=== PATIENT | male | born 1975 | race African-American/Black ===

== ENCOUNTER → 2017-02-11 | Outpatient (CLI) | payer OTHER ==
--- NOTE | 2017-02-11 14:43 | CT ---
EXAMINATION TYPE: CT abdomen pelvis w con DATE OF EXAM: 02/11/2017 COMPARISON: Prior CT abdomen and pelvis study December 26, 2008 HISTORY: Generalized abdominal pain per order. Pain in stomach for almost [address] DLP: 1451 mGycm, Automated Exposure Control for Dose Reduction was Utilized. CONTRAST: CT scan of the abdomen and pelvis is performed with oral and with IV Contrast, patient injected with 100 ml mL of Omnipaque 300. FINDINGS: LUNG BASES: No significant abnormality is appreciated. LIVER/GB: No significant abnormality is appreciated. PANCREAS: No significant abnormality is seen. SPLEEN: No significant abnormality is seen. ADRENALS: No significant abnormality is seen. KIDNEYS: No significant abnormality is seen. BOWEL: The oral contrast reaches level of cecum. Normal-appearing appendix is seen posteriorly in the right lower quadrant. There is no suspicious small or large bowel dilatation. Stomach is poorly dist ended and thus suboptimally evaluated as oral contrast has passed on current study. Similar there is suboptimal evaluation of duodenal sweep and proximal jejunal loops. Some proximal jejunal loops in th e upper to midabdomen show moderate to severe wall thickening, for reference axial image 34 loop of b owel right of midline. Fecal material is seen in nondistended colon. PROSTATE/SEMINAL VESICLES: Prostate gland is heterogeneous in appearance and prominent suspected slig htly enlarged in size bulging on bladder base, underlying BPH is suspected. Clinical correlation advi sed. Some central zone calcifications are seen. LYMPH NODES: No greater than 1cm abdominal or pelvic lymph nodes are appreciated. OSSEOUS STRUCTURES: There is persistent prominent disc space narrowing with spurring and endplate scl erosis at lumbosacral junction. Spine is straightened on sagittal images. Stable sclerotic focus left acetabulum presumed benign bone island. OTHER: No significant additional abnormality is seen. IMPRESSION: 1. Possible proximal enteritis, consider infectious or inflammatory etiologies. 2. Prominent suspected enlarged prostate gland, clinical correlation for BPH is advised.
== END | disposition home or self-care (01) ==
LOC: RADCTMAIN 13:53
PROVIDERS: ATTEND Family Medicine
DX: R10.84 Generalized abdominal pain (principal)
CPT/HCPCS: 74177; Q9967

== ENCOUNTER → 2018-03-24 | Outpatient (CLI) | payer OTHER ==
--- NOTE | 2018-03-24 14:34 | MR ---
EXAMINATION TYPE: MR Prostate wo/w con DATE OF EXAM: 03/24/2018 COMPARISON: CT abdomen and pelvis February 11, 2017 IMAGE QUALITY: Suboptimal but repeat not required. Motion artifact noted. INDICATION: PSA elevated , PSA: 3.8 ng/ml on October 02, 2017 Recent Biopsy and Date: None Pathology Report (If Applicable): N/A TECHNIQUE: Examination was performed using a 3T MRI without an endorectal coil. Multiparametric imaging was perf ormed with T2 mutliplanar sequences, axial diffusion weighted imaging and dynamic contrast enhanced i maging, utilizing 7.5 mL intravenous Gadavist gadolinium contrast. FINDINGS: Prostate gland is enlarged in size which correlates with prior CT. Peripheral zone shows some vague a reas of indistinct hypointensity on ADC mapping without definitely hypointense areas or areas of incr eased signal on diffusion weighted images. Transitional zone shows no suspicious areas of heterogeneo us nodularity or poorly defined hypointense signal. Capsule is fairly well-defined without suspicious adjacent mass or adenopathy. Seminal vesicles are felt within normal limits. Visualized portion of bladder is grossly unremarkable. Visualized osseous structures are intact. There is no clinically significant cancer identified. PROSTATE VOLUME: 5.0 cm SI x 4.2 cm AP x 3.5 cm LR Vol= 39.4 cc PSA DENSITY: 4.728 ng/ml/cc IMPRESSION: A focus of clinically significant cancer is not identified. Highest Assessment Category: 2 MRI Stage: T0 N0 M0 based on review of pelvic images. False negative rates for MRI range from 5-20% depending on risk profile. Assessment Categories: 1 ? Very low (clinically significant cancer is highly unlikely to be present) 2 ? Low (clinically significant cancer is unlikely to be present) 3 ? Intermediate (the presence of clinically significant cancer is equivocal) 4 ? High (clinically significant cancer is likely to be present) 5 ? Very high (clinically significant cancer is highly likely to be present) Locations: PZ = peripheral zone; TZ = transition zone CZ=central zone; AFS = anterior fibromuscular stroma a=anterior half (i.e. PZa=anterior half of peripheral zone); pm= posterior medial (i.e PZpm) pl = postero-lateral (i.e. PZpl); p = posterior half (i.e. TZp) ; a = anterior half (i.e TZa or P Za) Other: N=no or no; E= equivocal; Y=yes EPE = extraprostatic extension NVB = neurovascular bundle NA = not applicable/not available
== END ==
LOC: RADMRIMAIN 11:12
PROVIDERS: ATTEND Urology
DX: R97.20 Elevated prostate specific antigen [PSA] (principal)
CPT/HCPCS: 72197

== ENCOUNTER → 2018-04-07 | Outpatient (CLI) | payer OTHER | END | disposition home or self-care (01) | LOC: LABWHC1 09:46 | PROVIDERS: ATTEND Urology | DX: R97.20 Elevated prostate specific antigen [PSA] (principal) | CPT/HCPCS: 36415; 84153; 84154 ==

== ENCOUNTER 2018-04-30 15:43 | Emergency (ER) | payer OTHER ==
[2018-04-30] MEDS ORDERED: ACETAMINOPHEN TAB 500 MG TAB PO STA (16:21)
--- NOTE | 2018-04-30 16:26 | ED ---
General Adult HPI - General Chief complaint: Extremity Problem,Nontraumatic Stated complaint: Lt leg pain Source: patient, RN notes reviewed Mode of arrival: ambulatory Limitations: no limitations - History of Present Illness Initial comments: Patient is a 42-year-old male who presents the emergency department with complaint of left lower extremity pain that is primarily in the calf that started yesterday morning. He denies any injury. He reports the pain will extend to the back of his low thigh if he bends his knee. He reports taking ibuprofen and Flexeril yesterday without relief. He reports not taking any pain medication today. He denies ever having something like this happen before. Denies history of blood clots. Denies smoking. Patient denies any recent fever, chills, shortness of breath, chest pain, back pain, abdominal pain , nausea or vomiting, numbness or tingling, headaches or visual changes, or any other complaints. - Related Data Previous Rx's Medication Instructions Recorded Penicillin V Potassium [Pen Vee K] 500 mg PO QID #28 tab 05/28/15 Allergies Allergy/AdvReac Type Severity Reaction Status Date / Time No Known Allergies Allergy Verified 04/30/18 15:49 Review of Systems ROS Statement: Those systems with pertinent positive or pertinent negative responses have been documented in the HPI. ROS Other: All systems not noted in ROS Statement are negative. Past Medical History Additional Past Medical History / Comment(s): back pain History of Any Multi-Drug Resistant Organisms: MRSA Date of last positivie culture/infection: 2008 MDRO Source:: groin Past Surgical History: No Surgical Hx Reported Past Psychological History: No Psychological Hx Reported Smoking Status: Current some day smoker Past Alcohol Use History: None Reported Past Drug Use History: Marijuana General Exam Limitations: no limitations General appearance: alert, in no apparent distress Eye exam: Present: normal appearance Respiratory exam: Present: normal lung sounds bilaterally. Absent: wheezes, rales, rhonchi Cardiovascular Exam: Present: regular rate, normal rhythm Extremities exam: Present: normal inspection, full ROM, normal capillary refill , calf tenderness (Left.), other (DP and PT pulses are palpable and strong bilaterally. No rash. No induration.) Neurological exam: Present: alert, oriented X3 Skin exam: Present: warm, dry Course Vital Signs 04/30/18 04/30/18 15:47 19:55 Temperature 98.3 F 97.5 F L Pulse Rate 77 78 Respiratory 20 16 Rate Blood Pressure 126/83 127/65 O2 Sat by Pulse 99 98 Oximetry Medical Decision Making - Medical Decision Making X-rays of the left tibia and fibula are negative. Ultrasound Venous Doppler of left lower extremity is negative for DVT. Case discussed in detail with attending physician Dr. Witt. Disposition Clinical Impression: Leg pain Disposition: HOME SELF-CARE Condition: Good Instructions (If sedation given, give patient instructions): Leg Pain (ED) Additional Instructions: Follow-up with your PCP in 1 to 2 days. Return to the emergency department if your symptoms worsen or other concerns. Is patient prescribed a controlled substance at d/c from ED?: No Referrals: Garrett Magaña MD [Primary Care Provider] - 1-2 days Time of Disposition: 19:55
--- NOTE | 2018-04-30 16:40 | XR ---
EXAMINATION TYPE: XR tibia fibula LT DATE OF EXAM: 04/30/2018 COMPARISON: None HISTORY: Pain TECHNIQUE: 3 views FINDINGS: I see no fracture nor dislocation. Ankle joint and knee joint appear intact. IMPRESSION: Negative left tibia and fibula exam.
--- NOTE | 2018-04-30 19:23 | US ---
EXAMINATION TYPE: US venous doppler duplex LE LT DATE OF EXAM: 04/30/2018 4:21 PM COMPARISON: NONE CLINICAL HISTORY: Pain. No swelling or redness. No hx of blood clots. No blood thinners. Calf pain . SIDE PERFORMED: Left TECHNIQUE: The lower extremity deep venous system is examined utilizing real time linear array sonog jordin with graded compression, doppler sonography and color-flow sonography. VESSELS IMAGED: External Iliac Vein (EIV) Common Femoral Vein Deep Femoral Vein Greater Saphenous Vein * Femoral Vein Popliteal Vein Small Saphenous Vein *- limited visualization Proximal Calf Veins (* superficial vessels) Left Leg: Negative for DVT IMPRESSION: No evidence of deep venous thrombosis in the left leg.
[2018-04-30 20:01] VITALS: BP 127/65; PULSE 78; RESP 16; TEMP 97.5
== END 2018-04-30 19:55 | disposition home or self-care (01) ==
LOC: EC 15:43
DX: M79.605 Pain in left leg (principal); F17.200 Nicotine dependence, unspecified, uncomplicated; Z86.14 Personal history of Methicillin resistant Staphylococcus aureus infection
CPT/HCPCS: 99284

== ENCOUNTER → 2019-09-19 | Outpatient (CLI) | payer OTHER ==
--- NOTE | 2019-09-19 15:47 | XR ---
EXAMINATION TYPE: XR ankle complete RT, XR foot complete RT DATE OF EXAM: 09/19/2019 CLINICAL HISTORY: Injury 6 days ago with pain. TECHNIQUE: Frontal, lateral and oblique images of the right ankle and foot are obtained. COMPARISON: None. FINDINGS: There is no acute fracture/dislocation evident in the right ankle. The ankle mortise appe ars within normal limits. The overlying soft tissue appears unremarkable. There is no acute fracture or dislocation evident in the right foot. Flexion in the toes is present. The joint spaces in the right foot are preserved. Mild diffuse subcutaneous edema is present. IMPRESSION: There is no acute fracture or dislocation in the right ankle or foot.
== END | disposition home or self-care (01) ==
LOC: RADXRMAIN 15:16 → EDSTATUS 15:20
PROVIDERS: ATTEND Emergency Medicine
DX: S93.401A Sprain of unspecified ligament of right ankle, initial encounter (principal); S93.601A Unspecified sprain of right foot, initial encounter

== ENCOUNTER → 2019-09-26 | Outpatient (CLI) | payer OTHER ==
--- NOTE | 2019-09-26 12:26 | XR ---
EXAMINATION TYPE: XR ankle complete 3 views RT, XR foot complete 3 views RT DATE OF EXAM: 09/26/2019 COMPARISON: 09/19/2019 HISTORY: 44-year-old male S93.401D, S93.601D FINDINGS: Ankle: Mild marginal spurring about the tibiotalar joint. Ankle mortise is congruent with preservation of th e distal tibiofibular overlap. Talar dome is intact. Achilles tendon appears intact. Some anterior so ft tissue swelling is noted. Some bony hypertrophy along the medial cortex of the medial malleolus. Foot: Os peroneum incidentally noted. No acute fracture, subluxation, or dislocation. No acute fracture, ortega bluxation, or dislocation. IMPRESSION: 1. Ankle: Mild degenerative spurring about the ankle joint. There is some bony changes along the medi al malleolus which can be seen in the setting of posterior tibial tendon dysfunction. No acute osseou s abnormality seen. 2. Foot: No acute osseous abnormality seen.
== END | disposition home or self-care (01) ==
LOC: LABWHC1 11:07
PROVIDERS: ATTEND Emergency Medicine
DX: M89.8X7 Other specified disorders of bone, ankle and foot (principal); S93.601D Unspecified sprain of right foot, subsequent encounter

== ENCOUNTER → 2021-03-15 | Outpatient (CLI) | payer OTHER ==
--- NOTE | 2021-03-16 03:39 | MR ---
EXAMINATION TYPE: MR shoulder RT wo con DATE OF EXAM: 03/15/2021 COMPARISON: None HISTORY: Right shoulder pain, injury 4-6 mos ago. Multiplanar multiecho imaging of the right shoulder without contrast. There is a large defect in the supraspinatus tendon over the humeral head with retraction. The defect measures 2.2 cm in length. There is mild shoulder joint effusion. There is spurring at the AC joint. There is some subacromial joint space narrowing. There is narrowing of the glenohumeral joint space. There is no evidence of a fracture. The subscapularis tendon is intact. The glenoid cher appear int act. Biceps tendon is intact. IMPRESSION: Large rotator cuff tear with retraction of the supraspinatus tendon. Massive hypertrophic osteophyte formation at the AC joint that measures almost 3 cm in thickness. Small shoulder joint effusion. No fracture seen.
== END | disposition home or self-care (01) ==
LOC: RADMRIMAIN 20:16
PROVIDERS: ATTEND Orthopaedic Surgery
DX: M25.511 Pain in right shoulder (principal); M75.121 Complete rotator cuff tear or rupture of right shoulder, not specified as traumatic; M25.411 Effusion, right shoulder

== ENCOUNTER → 2023-11-02 | Outpatient (CLI) | payer OTHER ==
--- NOTE | 2023-12-09 15:10 | XR ---
EXAMINATION TYPE: XR Hip Complete LT DATE OF EXAM: 11/02/2023 INDICATION: Patient age:Male; 48 years old; Reason for study: HIP PAIN; PHH. COMPARISON: CT abdomen and pelvis 04/13/2016 TECHNIQUE: The left hip was examined in the frontal and lateral projections . FINDINGS: No evidence of any acute osseous pathology, joint dislocation, or soft tissue swelling. No significant joint space narrowing or acetabular spurring noted. Small greater trochanteric spurring n oted. IMPRESSION: 1. No acute osseous pathology. 2. Small greater trochanter spur.
== END | disposition home or self-care (01) ==
LOC: RADXRMAIN 14:07
PROVIDERS: ATTEND Family Medicine
DX: M70.62 Trochanteric bursitis, left hip (principal); M25.552 Pain in left hip
CPT/HCPCS: 73502